=== PATIENT | female | born 2000 | race Caucasian/White ===

== ENCOUNTER 2021-01-22 18:42 | Emergency (ER) | payer OTHER ==
[2021-01-22 18:59] VITALS: BP 133/87; PULSE 88; TEMP 100.1; BMI 21.2
[2021-01-22] MEDS ORDERED: CEPHALEXIN MONOHYDRATE 500 MG CAPSULE (UD) PO ONE (20:15)
[2021-01-22] MEDS ORDERED: CEPHALEXIN MONOHYDRATE 500 MG CAPSULE (UD) ONE (20:17)
== END 2021-01-22 20:26 | disposition home or self-care (01) ==
LOC: FER 18:42
DX: S92.502B Displaced unspecified fracture of left lesser toe(s), initial encounter for open fracture (principal)
CPT/HCPCS: 73660-TC-LT-FY; 99284-25